=== PATIENT | male | born 1955 | race Caucasian/White ===

== ENCOUNTER → 2016-05-30 | Outpatient (CLI) | payer OTHER ==
[~2016-05-30] MED LIST: AVELOX400 MG PO; BENADRYL25 MG PO; DEPAKOTE DR500 MG PO; Depakote500 MG PO; Flovent 220 M220 MCG INH; K-DUR 2020 MEQ PO; MOTRIN800 MG PO; NAPROSYN500 MG PO; OMEPRAZOLE20 MG PO; OSCAL,OYSTER S500 MG PO; POTASSIUM20 MEQ PO; PREDNICOT20 MG PO; ROBAXIN500 MG PO; SPIRIVA 5 CAPS18 MCG PO; ULTRAM50 MG PO
== END | disposition home or self-care (01) ==
LOC: US 07:11
DX: K76.0 Fatty (change of) liver, not elsewhere classified (principal); R10.13 Epigastric pain

== ENCOUNTER 2017-07-07 12:25 | Inpatient (IN) | payer OTHER ==
[~2017-07-07] VITALS: Ht 182.9 cm; Wt 122.1 kg
--- NOTE | ~2017-07-07 | O ---
[place], [place] OPERATIVE NOTE [id number] UNIT #: [id number] ROOM: [facility] DOCTOR: SARAH TEE MD BIRTHDATE: [birth year] DOS: 07/09/2017 PROCEDURE: Transesophageal echocardiogram and cardioversion. INDICATIONS: Newly documented atrial flutter. PROCEDURE: Informed written consent was obtained from the patient and he was brought to the operating suite in the postabsorptive state. He was anesthetized by anesthesia staff. The transesophageal transducer was then inserted through his mouth to the level of his stomach without difficulty. Images were obtained in the standard fashion. Left ventricular size and function were normal. The interatrial septum was intact both by Doppler and by contrast evaluations. The tricuspid, pulmonic, aortic and mitral valves all appeared structurally normal. The left atrium was normal in size. The pulmonary veins attached normally to the left atrium. The left atrial appendage was small and showed no evidence for clot. The aortic root was investigated and was of normal dimension with minor plaque. Once we were sure that he had no cardiac source of emboli, the transducer was removed and he was placed on his back. He was given a synchronized biphasic shock utilizing AP pads at a dose of 50 watt seconds and converted from atrial flutter into atrial fibrillation. A second shock was administered in a synchronized fashion at 200 watt seconds and he converted to sinus rhythm. The patient tolerated all of these procedures well and had stable vital signs throughout. No immediately apparent complications were present. IMPRESSION: 1. No cardiac source of embolism seen. 2. Successful biphasic synchronized cardioversion. SARAH TEE MD CM:OPRECORD:OPERATIVE NOTE [id number] SARAH TEE MD 07/09/17 1358 interface
--- NOTE | ~2017-07-07 | PR ---
[place], [place] PROGRESS NOTE NAME: CAPO MARQUEZ SR [facility] #: [id number] UNIT #: [id number] ROOM: [facility] DOCTOR: SARAH TEE MD BIRTHDATE: [birth year] DOS: 07/10/2017 SUBJECTIVE: The patient was seen at his bedside in the intensive care unit today for followup of his recently documented atrial flutter. Yesterday, he did undergo a OLEG-guided cardioversion, which he tolerated well. He has remained in sinus rhythm since that time. He was ambulating in the halls today and felt well without lightheadedness or dyspnea. PHYSICAL EXAMINATION: VITAL SIGNS: His pulse is 60 and regular, blood pressure is 124/72. He is afebrile. He weighs 122.1 kg and has a body mass index 36.5. NECK: Supple. He has no jugular distention. Carotids are full. There are no bruits. He had no neck or supraclavicular masses. LUNGS: Respirations are unlabored. His chest is clear to auscultation and percussion. There is no presacral edema or chest wall tenderness. HEART: Has a regular rhythm with an S4 gallop. ABDOMEN: Benign. EXTREMITIES: Showed no edema. IMPRESSION: 1. Newly documented atrial flutter. 2. History of hypertension. 3. History of cigarette abuse. 4. History of deep venous thrombosis. PLAN: I think the patient can go home today. At the time of discharge, his medications are diltiazem CD 240 mg daily, Xarelto 20 mg daily, vitamin D 3000 units daily, tamsulosin 0.4 mg daily, docusate 100 mg daily, omeprazole 20 mg daily, tramadol 100 mg twice a day, Depakote 1000 mg twice a day, mometasone inhaler q.12 hours and milk of magnesia p.r.n. We will plan on seeing him back in the office in about a month. I thank Dr. Recio for asking our advice regarding his care. [place], [place] PROGRESS NOTE NAME: CAPO MARQUEZ SR [facility] #: [id number] UNIT #: [id number] ROOM: [facility] DOCTOR: SARAH TEE MD BIRTHDATE: [birth year] SARAH TEE MD CM:LUI [id number] SARAH TEE MD 07/11/17 0825 interface
--- NOTE | ~2017-07-07 | CON ---
[place], [place] REPORT OF CONSULTATION [id number] UNIT #: [id number] ROOM: [facility] DOCTOR: SARAH TEE MD BIRTHDATE: [birth year] DOS: 07/07/2017 REASON FOR CONSULTATION: Tachycardia, newly documented atrial flutter. HISTORY OF PRESENT ILLNESS: The patient is a 61-year-old man who has no previous history of heart disease. He specifically denies any history of coronary artery disease or previous heart attack. He does have a history of hypertension and is being followed at the [place] where he was recently placed on lisinopril for management of his blood pressure. He notes that for the last two weeks, he has felt poorly. He gets tired easily. He states that he does note that after he exerts himself, his heart races. He also feels lightheaded, but denies syncope. He was seen at the [facility] today where he was noted to be very tachycardic and sent to the emergency room where he was found to be in atrial flutter. He was given diltiazem, metoprolol, and adenosine without much change; however, he does appear to be hemodynamically stable. He was admitted to the intensive care unit for further evaluation and care. PAST MEDICAL HISTORY: Includes 1. Essential hypertension. 2. Seizure disorder. 3. Previous cigarette abuse. 4. History of deep venous thrombosis. The patient was on warfarin in the past. He denies ever having a pulmonary embolism. MEDICATIONS: Prior to admission include Symbicort 2 puffs b.i.d., aspirin 81 mg daily, vitamin D 3000 units daily, Depakote 1000 mg q.12 hours, lisinopril 10 mg daily, omeprazole 20 mg daily, tamsulosin 0.4 mg daily and tramadol 100 mg q.12 hours. ALLERGIES: The patient lists allergies to PHENYTOIN and was told not to take ASPIRIN because of a possible drug interaction. REVIEW OF SYSTEMS: The patient denies diplopia, loss of vision, or focal weakness. He denies lightheadedness or syncope. He denies orthopnea, PND, or pedal edema. He denies fevers, chills, sweats or recent weight change. He does have a cough. He denies hemoptysis or hematemesis. He does have dyspnea with minor exertion as noted above. He denies nausea or vomiting. He does have palpitations as noted above. He denies blood in his stools or urine. He denies any skin rashes. Remainder of the review of systems is negative except as noted above. SOCIAL HISTORY: The patient is disabled because of his seizure disorder. He states, however, that it has been several years since his last seizure. He does smoke on a daily basis. He does not consume alcohol. PHYSICAL EXAMINATION: GENERAL: The patient is an overweight white male who is awake, alert and oriented. [place], [place] REPORT OF CONSULTATION NAME: CAPO MARQUEZ SR UNIT #: [id number] ROOM: [facility] DOCTOR: SARAH TEE MD BIRTHDATE: [birth year] VITAL SIGNS: Pulse is 140 and regular, blood pressure is 116/82. He is afebrile. He weighs 122.5 kg and has a body mass index of 36.7. HEENT: Normocephalic and atraumatic. Extraocular muscles are intact. Sclerae are clear. Pupils equal, round and react to light. The oral mucosa is moist. Tongue is midline. NECK: Supple. He has no jugular distention. Carotids are full. I heard no bruits. He had no neck or supraclavicular masses, no thyromegaly. LUNGS: Respirations are unlabored. He has decreased breath sounds at the bases, but no wheezes or rales. He has no presacral edema or chest wall tenderness. CARDIOVASCULAR: His heart has a regular rhythm. He has no murmurs, rubs or gallops. The PMI is not displaced. He has no precordial heave, lift or thrill. ABDOMEN: Soft and normally active without masses, organomegaly or bruits. EXTREMITIES: Showed no edema. Peripheral pulses are easily palpated bilaterally. LABORATORY DATA: Electrocardiogram does show atrial flutter with 2:1 block. Hemoglobin is 14.9, white count 9500, platelet count 141,000. INR is 1.0. Sodium 141, potassium 4.6, chloride 106, CO2 25, BUN 18, creatinine 1.47. ProBNP is mildly elevated at 702, TSH is normal at 2.57. Troponin is normal. IMPRESSION: 1. Newly documented atrial flutter with rapid ventricular response. 2. History of hypertension, under good control. 3. History of cigarette abuse. 4. History of deep venous thrombosis. PLAN: The patient will be anticoagulated with low-molecular weight heparin for the time being, but we probably will need to place him on a long-acting oral anticoagulant in the near future. For now, we will try to control him with oral diltiazem. If he is difficult to control, we will consider a cardioversion with transesophageal echocardiography to rule out atrial thrombus. We will continue to watch him in the intensive care unit as his medicines were adjusted. An echocardiogram will be obtained. We thank the hospitalist physicians for asking our advice regarding his care. SARAH TEE MD CM:CONSTR:REPORT OF CONSULTATION 1619 07/07/17 1651 interface
--- NOTE | ~2017-07-07 | PR ---
[place], [place] PROGRESS NOTE NAME: CAPO MARQUEZ SR [facility] #: [id number] UNIT #: [id number] ROOM: [facility] DOCTOR: SARAH TEE MD BIRTHDATE: [birth year] DOS: 07/08/2017 SUBJECTIVE: The patient was seen at his bedside in the intensive care unit today, 07/08/2017, for followup of his recently documented atrial flutter. He is a 61-year-old man who states that for the last few weeks he has felt poorly with increased fatigue. He states that he has felt his heart racing, but denies any syncope. He was seen at the [facility] on July 07 where he was noted to be tachycardic and sent to the Emergency Room where he was found to be in atrial flutter. He appears to be hemodynamically stable. He was placed on diltiazem and his rate has slowed, but he remains in flutter this morning. PHYSICAL EXAMINATION: VITAL SIGNS: Today his pulse is about 100 and irregular, blood pressure is 98/66. He is afebrile. NECK: Supple. He has no jugular distention. Carotids are full. LUNGS: Respirations are unlabored. His chest is clear. HEART: Has an irregularly irregular rhythm without gallops or murmurs. The PMI is not displaced. ABDOMEN: Benign. EXTREMITIES: Showed no edema. LABORATORY DATA: I reviewed his echocardiogram yesterday. It showed normal left ventricular size with normal wall thickness and systolic function, left atrial size is normal. There was no significant abnormality of valve function. IMPRESSION: 1. Newly documented atrial flutter. 2. History of hypertension, under good control. 3. History of cigarette abuse. 4. History of deep venous thrombosis. PLAN: For now, we will switch him from Lovenox to rivaroxaban for long-term stroke prophylaxis. I will give him a loading dose of digoxin today. We will continue his oral diltiazem. If he does not convert spontaneously to sinus rhythm today, then we will plan a OLEG-guided cardioversion on 07/09/2017. I explained the procedure to the patient including the risk of sore throat, anesthesia reactions, vomiting, aspiration, etc. and he has agreed to proceed. I thank the hospitalist physicians for asking our advice regarding his care. [place], [place] PROGRESS NOTE NAME: ALMA CAPO ALMANZA UNIT #: [id number] ROOM: [facility] DOCTOR: SARAH TEE MD BIRTHDATE: [birth year] SARAH TEE MD CM:PNCATHIE 1014 [id number] SARAH TEE MD 07/08/17 1551 interface
[2017-07-07 12:31] VITALS: BP 116/80
[2017-07-07 13:09] LABS: BASO # 0.1 10*3/uL (0.0-0.1); BASO % 0.7 % (0.0-1.0); EOS # 0.1 10*3/uL (0.0-0.4); EOS % 1.5 % (1.0-4.0); HEMATOCRIT 44.9 % (42.0-52.0); HEMOGLOBIN 14.9 g/dl (14.0-18.0); LYMPH % 31.2 % (27.0-41.0); MEAN CELL VOLUME 96.6 fl (80.0-94.0); MEAN CORPUSCULAR HGB CONC 33.2 g/dl (33.0-37.0); MEAN PLATELET VOLUME 11.9 fl (9.6-12.3); MONO # 0.9 10*3/uL (0.1-1.0); MONO % 9.2 % (3.0-9.0); NEUT # 5.4 10*3/uL (2.3-7.9); NEUT % 56.6 % (47.0-73.0); PLATELET COUNT AUTOMATED 141 10*3/uL (130-400); RED BLOOD COUNT 4.65 10*6/uL (4.50-5.90); RED CELL DISTRI WIDTH 14.3 % (0-14.5); WHITE BLOOD COUNT 9.5 10*3/uL (4.8-10.8)
[2017-07-07 13:24] LABS: ACT PARTIAL THROMBO TIME 21.5 SECONDS (20.8-31.5)
[2017-07-07 13:26] LABS: ALBUMIN 3.5 gm/dl (3.1-4.5); CREATININE 1.47 mg/dL (0.70-1.30); POTASSIUM 4.6 mmol/L (3.5-5.1); TOTAL PROTEIN 7.4 gm/dL (6.4-8.2); TROPONIN I 0.021 ng/ml (<0.045)
[2017-07-07 13:32] LABS: THYROID STIM HORMONE (HS) 2.57 uIU/ml (0.358-4.75)
[2017-07-07] MEDS ORDERED: LISINOPRIL10 M1 PO (14:06)
[2017-07-07] MEDS ORDERED: ASPIRIN ADULT L81 M2 PO (14:07)
[2017-07-07] MEDS ORDERED: OMEPRAZOLE D/R20 MG PO (14:08)
[2017-07-07] MEDS ORDERED: SYMB160 INH (14:10)
[2017-07-07 14:11] VITALS: BP 116/82
[2017-07-07 14:29] VITALS: BP 124/72
[2017-07-07] MEDS ORDERED: TRAMADOL HYDRO100 MG PO (14:58)
[2017-07-07] MEDS ORDERED: VITAMIN D33000 UNIT PO (15:05)
[2017-07-07] MEDS ORDERED: TAMSULOSIN HCL0.4 MG PO (15:07)
[2017-07-07 16:00] VITALS: BP 112/79
[2017-07-07 20:00] VITALS: BP 104/60
[2017-07-07 21:38] LABS: BILIRUBIN NEGATIVE (NEGATIVE); BLOOD NEGATIVE (NEGATIVE); CLARITY CLEAR (CLEAR); COLOR YELLOW (YELLOW); GLUCOSE 1+ (NEGATIVE); KETONE TRACE (NEGATIVE); LEUKO ESTERASE NEGATIVE (NEGATIVE); NITRITE NEGATIVE (NEGATIVE); PH 5.5 (5.0-9.0); SPECIFIC GRAVITY >= 1.030 (1.005-1.030); UROBILINOGEN 0.2 E.U./dl (0.2-1.0)
[2017-07-07 21:51] LABS: MUCOUS 2+
[2017-07-07 21:52] LABS: BACTERIA TRACE
[2017-07-08] VITALS: BP 100/62
[2017-07-08 04:00] VITALS: BP 95/52
[2017-07-08 05:59] LABS: BASO # 0.1 10*3/uL (0.0-0.1); BASO % 0.9 % (0.0-1.0); EOS # 0.2 10*3/uL (0.0-0.4); EOS % 2.6 % (1.0-4.0); HEMATOCRIT 42.7 % (42.0-52.0); HEMOGLOBIN 13.9 g/dl (14.0-18.0); LYMPH # 3.2 10*3/uL (1.3-4.4); LYMPH % 39.3 % (27.0-41.0); MEAN CELL VOLUME 99.3 fl (80.0-94.0); MEAN CORPUSCULAR HGB 32.3 pg (27.0-31.0); MEAN CORPUSCULAR HGB CONC 32.6 g/dl (33.0-37.0); MEAN PLATELET VOLUME 12.2 fl (9.6-12.3); MONO # 0.8 10*3/uL (0.1-1.0); MONO % 9.6 % (3.0-9.0); NEUT # 3.8 10*3/uL (2.3-7.9); NEUT % 46.4 % (47.0-73.0); PLATELET COUNT AUTOMATED 129 10*3/uL (130-400); RED CELL DISTRI WIDTH 14.6 % (0-14.5); WHITE BLOOD COUNT 8.2 10*3/uL (4.8-10.8)
[2017-07-08 06:10] LABS: CREATININE 1.51 mg/dL (0.70-1.30); POTASSIUM 4.3 mmol/L (3.5-5.1)
[2017-07-08 06:11] LABS: VALPROIC ACID (DEPAKENE) 80.9 ug/ml (50-100)
[2017-07-08 07:55] VITALS: BP 98/66
[2017-07-08 12:00] VITALS: BP 102/75
[2017-07-08 16:00] VITALS: BP 104/64
[2017-07-08 20:00] VITALS: BP 105/58
[2017-07-09] VITALS (10 sets, daily range): BP systolic 99–131; BP diastolic 52–82
[2017-07-09 04:41] LABS: BASO # 0.1 10*3/uL (0.0-0.1); BASO % 0.8 % (0.0-1.0); EOS # 0.2 10*3/uL (0.0-0.4); EOS % 2.8 % (1.0-4.0); HEMATOCRIT 41.9 % (42.0-52.0); HEMOGLOBIN 13.8 g/dl (14.0-18.0); LYMPH # 2.6 10*3/uL (1.3-4.4); LYMPH % 29.9 % (27.0-41.0); MEAN CELL VOLUME 98.6 fl (80.0-94.0); MEAN CORPUSCULAR HGB 32.5 pg (27.0-31.0); MEAN CORPUSCULAR HGB CONC 32.9 g/dl (33.0-37.0); MEAN PLATELET VOLUME 11.7 fl (9.6-12.3); MONO # 0.8 10*3/uL (0.1-1.0); MONO % 9.5 % (3.0-9.0); NEUT # 4.9 10*3/uL (2.3-7.9); NEUT % 56.2 % (47.0-73.0); PLATELET COUNT AUTOMATED 119 10*3/uL (130-400); RED BLOOD COUNT 4.25 10*6/uL (4.50-5.90); RED CELL DISTRI WIDTH 14.6 % (0-14.5); WHITE BLOOD COUNT 8.6 10*3/uL (4.8-10.8)
[2017-07-09 05:09] LABS: ALBUMIN 3.1 gm/dl (3.1-4.5); ALKALINE PHOSPHATASE 74 U/L (45-117); BUN 18 mg/dl (7-24); CHLORIDE 105 mmol/L (98-107); CREATININE 1.21 mg/dL (0.70-1.30); POTASSIUM 4.1 mmol/L (3.5-5.1); SGOT/AST 12 IU/L (3-35); SGPT/ALT 27 U/L (12-78); SODIUM 142 mmol/L (136-145); TOTAL PROTEIN 6.7 gm/dL (6.4-8.2)
[2017-07-10] VITALS: BP 124/73
[2017-07-10 04:00] VITALS: BP 126/70
[2017-07-10 05:28] LABS: BASO # 0.1 10*3/uL (0.0-0.1); BASO % 0.9 % (0.0-1.0); EOS # 0.2 10*3/uL (0.0-0.4); EOS % 1.8 % (1.0-4.0); HEMATOCRIT 42.7 % (42.0-52.0); HEMOGLOBIN 13.6 g/dl (14.0-18.0); LYMPH # 2.5 10*3/uL (1.3-4.4); LYMPH % 26.2 % (27.0-41.0); MEAN CELL VOLUME 99.8 fl (80.0-94.0); MEAN CORPUSCULAR HGB 31.8 pg (27.0-31.0); MEAN CORPUSCULAR HGB CONC 31.9 g/dl (33.0-37.0); MEAN PLATELET VOLUME 11.6 fl (9.6-12.3); MONO # 0.8 10*3/uL (0.1-1.0); MONO % 8.2 % (3.0-9.0); NEUT # 5.8 10*3/uL (2.3-7.9); NEUT % 61.8 % (47.0-73.0); PLATELET COUNT AUTOMATED 125 10*3/uL (130-400); RED BLOOD COUNT 4.28 10*6/uL (4.50-5.90); RED CELL DISTRI WIDTH 14.5 % (0-14.5); WHITE BLOOD COUNT 9.4 10*3/uL (4.8-10.8)
[2017-07-10 05:46] LABS: ALBUMIN 3.4 gm/dl (3.1-4.5); ALKALINE PHOSPHATASE 68 U/L (45-117); BUN 23 mg/dl (7-24); CHLORIDE 102 mmol/L (98-107); CREATININE 1.35 mg/dL (0.70-1.30); POTASSIUM 4.4 mmol/L (3.5-5.1); SGOT/AST 9 IU/L (3-35); SGPT/ALT 25 U/L (12-78); SODIUM 137 mmol/L (136-145); TOTAL PROTEIN 6.8 gm/dL (6.4-8.2)
[2017-07-10 08:00] VITALS: BP 124/72
[2017-07-10] MEDS ORDERED: CARDIZEM CD240 M1 PO (09:37)
== END 2017-07-10 10:28 | disposition home or self-care (01) | DRG 308 ==
LOC: ED 12:25 → ICCU 13:47 → EDHOLD 13:47 → ICCU 13:55
PROVIDERS: Emergency Medicine; Internal Medicine
PROC: B24BZZ4 Ultrasonography of Heart with Aorta, Transesophageal (ICD-10-PCS; principal; 2017-07-09)
PROC: 5A2204Z Restoration of Cardiac Rhythm, Single (ICD-10-PCS; 2017-07-09)
DX: I48.92 Unspecified atrial flutter (principal); N17.0 Acute kidney failure with tubular necrosis; R65.11 Systemic inflammatory response syndrome (SIRS) of non-infectious origin with acute organ dysfunction; E66.01 Morbid (severe) obesity due to excess calories; G40.909 Epilepsy, unspecified, not intractable, without status epilepticus; I10 Essential (primary) hypertension; M79.89 Other specified soft tissue disorders; N40.0 Benign prostatic hyperplasia without lower urinary tract symptoms; K21.9 Gastro-esophageal reflux disease without esophagitis; E55.9 Vitamin D deficiency, unspecified; I25.10 Atherosclerotic heart disease of native coronary artery without angina pectoris; D70.9 Neutropenia, unspecified; R73.9 Hyperglycemia, unspecified; R73.09 Other abnormal glucose; I48.91 Unspecified atrial fibrillation; Z86.718 Personal history of other venous thrombosis and embolism; Z88.6 Allergy status to analgesic agent; Z88.8 Allergy status to other drugs, medicaments and biological substances; Z79.82 Long term (current) use of aspirin; Z79.899 Other long term (current) drug therapy; Z87.891 Personal history of nicotine dependence; Z82.0 Family history of epilepsy and other diseases of the nervous system; Z68.36 Body mass index [BMI] 36.0-36.9, adult

== ENCOUNTER 2017-07-16 16:41 | Inpatient (IN) | payer OTHER ==
[~2017-07-16] VITALS: Ht 182.9 cm; Wt 122.2 kg
[~2017-07-16 16:41] MED LIST changes: +ASPIRIN ADULT L81 M2 PO; +CARDIZEM CD240 M1 PO; +LISINOPRIL10 M1 PO; +OMEPRAZOLE D/R20 MG PO; +SYMB160 INH; +TAMSULOSIN HCL0.4 MG PO; +TRAMADOL HYDRO100 MG PO; +VITAMIN D33000 UNIT PO
[2017-07-16 17:30] VITALS: BP 115/64
[2017-07-16 17:59] VITALS: BP 115/64
[2017-07-16 19:23] LABS: BASO # 0.1 10*3/uL (0.0-0.1); BASO % 0.9 % (0.0-1.0); EOS # 0.2 10*3/uL (0.0-0.4); HEMATOCRIT 43.1 % (42.0-52.0); HEMOGLOBIN 14.3 g/dl (14.0-18.0); LYMPH # 2.8 10*3/uL (1.3-4.4); LYMPH % 35.5 % (27.0-41.0); MEAN CELL VOLUME 97.5 fl (80.0-94.0); MEAN CORPUSCULAR HGB 32.4 pg (27.0-31.0); MEAN CORPUSCULAR HGB CONC 33.2 g/dl (33.0-37.0); MEAN PLATELET VOLUME 11.2 fl (9.6-12.3); MONO # 0.7 10*3/uL (0.1-1.0); MONO % 9.2 % (3.0-9.0); NEUT # 4.1 10*3/uL (2.3-7.9); NEUT % 51.3 % (47.0-73.0); PLATELET COUNT AUTOMATED 143 10*3/uL (130-400); RED BLOOD COUNT 4.42 10*6/uL (4.50-5.90); RED CELL DISTRI WIDTH 14.3 % (0-14.5); WHITE BLOOD COUNT 7.9 10*3/uL (4.8-10.8)
[2017-07-16 20:00] VITALS: BP 118/68
[2017-07-17] VITALS: BP 127/70
[2017-07-17 06:19] LABS: BASO # 0.1 10*3/uL (0.0-0.1); BASO % 0.7 % (0.0-1.0); EOS # 0.2 10*3/uL (0.0-0.4); EOS % 2.9 % (1.0-4.0); HEMATOCRIT 42.3 % (42.0-52.0); HEMOGLOBIN 13.9 g/dl (14.0-18.0); LYMPH # 3.5 10*3/uL (1.3-4.4); LYMPH % 48.9 % (27.0-41.0); MEAN CELL VOLUME 97.5 fl (80.0-94.0); MEAN CORPUSCULAR HGB CONC 32.9 g/dl (33.0-37.0); MEAN PLATELET VOLUME 11.3 fl (9.6-12.3); MONO # 0.5 10*3/uL (0.1-1.0); MONO % 7.1 % (3.0-9.0); NEUT # 2.8 10*3/uL (2.3-7.9); NEUT % 39.6 % (47.0-73.0); PLATELET COUNT AUTOMATED 129 10*3/uL (130-400); RED BLOOD COUNT 4.34 10*6/uL (4.50-5.90); RED CELL DISTRI WIDTH 14.2 % (0-14.5); WHITE BLOOD COUNT 7.2 10*3/uL (4.8-10.8)
[2017-07-17 06:40] LABS: BUN 23 mg/dl (7-24); CHLORIDE 105 mmol/L (98-107); CHOLESTEROL 150 mg/dL (<200); CREATININE 1.23 mg/dL (0.70-1.30); SODIUM 137 mmol/L (136-145); TRIGLYCERIDES 117 mg/dl (<150); VLDL CHOLESTEROL 23 mg/dL (6-40)
[2017-07-17 06:50] LABS: HDL CHOLESTEROL 32 mg/dl (40-60); LDL CHOLESTEROL 95 mg/dL (9-159)
[2017-07-17 08:00] VITALS: BP 116/68
[2017-07-17 08:11] LABS: VITAMIN D, 25-HYDROXY 29.7 ng/mL (30-100)
[2017-07-17 12:00] VITALS: BP 97/70
[2017-07-17 16:00] VITALS: BP 127/77
[2017-07-17 20:00] VITALS: BP 107/73
[2017-07-18 00:10] VITALS: BP 103/56
[2017-07-18 08:00] VITALS: BP 117/66
[2017-07-18 12:00] VITALS: BP 126/76
[2017-07-18] MEDS ORDERED: XARE20MG PO (14:05)
== END 2017-07-18 14:39 | disposition home or self-care (01) | DRG 309 ==
LOC: 4E 16:41
PROVIDERS: Student in an Organized Health Care Education/Training Program
DX: I48.92 Unspecified atrial flutter (principal); F23 Brief psychotic disorder; E66.01 Morbid (severe) obesity due to excess calories; D64.9 Anemia, unspecified; D72.820 Lymphocytosis (symptomatic); I10 Essential (primary) hypertension; K21.9 Gastro-esophageal reflux disease without esophagitis; N40.0 Benign prostatic hyperplasia without lower urinary tract symptoms; G40.909 Epilepsy, unspecified, not intractable, without status epilepticus; J45.909 Unspecified asthma, uncomplicated; G47.33 Obstructive sleep apnea (adult) (pediatric); F41.9 Anxiety disorder, unspecified; F32.9 Major depressive disorder, single episode, unspecified; N32.81 Overactive bladder; Z87.01 Personal history of pneumonia (recurrent); Z79.01 Long term (current) use of anticoagulants; Z79.899 Other long term (current) drug therapy; Z86.718 Personal history of other venous thrombosis and embolism; Z87.891 Personal history of nicotine dependence; Z82.49 Family history of ischemic heart disease and other diseases of the circulatory system; Z82.3 Family history of stroke; Z88.6 Allergy status to analgesic agent; Z88.8 Allergy status to other drugs, medicaments and biological substances; Z68.36 Body mass index [BMI] 36.0-36.9, adult

== ENCOUNTER 2017-08-10 13:40 | Emergency (ER) | payer OTHER ==
[~2017-08-10] VITALS: Ht 182.8 cm; Wt 121.6 kg
[~2017-08-10 13:40] MED LIST changes: +XARE20MG PO
[2017-08-10] MEDS ORDERED: CEPHALEXIN500 M1 PO (14:01)
[2017-08-10] MEDS ORDERED: EPIPEN 2-P0.3 MG/0.3 IJ (14:05)
== END 2017-08-10 14:26 | disposition home or self-care (01) ==
LOC: ED 13:40
DX: T63.441A Toxic effect of venom of bees, accidental (unintentional), initial encounter (principal); M79.89 Other specified soft tissue disorders; K21.9 Gastro-esophageal reflux disease without esophagitis; I10 Essential (primary) hypertension; Z88.8 Allergy status to other drugs, medicaments and biological substances; Z79.899 Other long term (current) drug therapy; Z79.82 Long term (current) use of aspirin; Z87.891 Personal history of nicotine dependence; Y92.89 Other specified places as the place of occurrence of the external cause

== ENCOUNTER 2017-09-04 14:53 | Inpatient (IN) | payer OTHER ==
[~2017-09-04] VITALS: Ht 182.8 cm; Wt 119.0 kg
--- NOTE | ~2017-09-04 | CON ---
[place], [place] REPORT OF CONSULTATION NAME: CAPO MARQUEZ SR [facility] #: [id number] UNIT #: [id number] ROOM: [facility] DOCTOR: SARAH TEE MD BIRTHDATE: [birth year] DOS: 09/04/2017 REASON FOR CONSULTATION: Recurrent atrial flutter. HISTORY OF PRESENT ILLNESS: The patient is a 61-year-old man who has a previous history of hypertension, but no history of coronary artery disease or previous heart attack. He presented to the hospital in 06/2017 with dyspnea, tachycardia and lightheadedness. He denied syncope. He was seen at the [facility] where he was noted to be tachycardic and sent to the Emergency Room where he was found to be in atrial flutter. He was given diltiazem, metoprolol, and adenosine without much change, but appeared to be hemodynamically stable. We did do a OLEG-guided cardioversion on 07/09/2017, and his symptoms improved. Unfortunately, he reverted back to atrial flutter shortly after that and returned to the hospital on 07/17/2017. He was seen by Dr. Young at that point, who treated the patient with rate control and referred him to Electrophysiology. He was seen in [place] by our electrophysiology service and was offered an ablation. The patient did undergo an ablation by Dr. Gonzalez on 08/29/2017; when he left the procedure room, he was in sinus rhythm. However, about 3 days later, he began to feel breathless and fatigued again. He was seen by his primary physician, Dr. Recio, who noted that he was back in atrial flutter and sent him back into the hospital. He complains now of fatigue, dyspnea and weakness, but denies any chest pain. PAST MEDICAL HISTORY: Includes: 1. Essential hypertension. 2. History of seizure disorder. 3. Previous cigarette abuse. 4. History of deep venous thrombosis. The patient was on warfarin in the past, but denied ever having a pulmonary embolism. 5. Atrial flutter documented, 06/2017. The patient did undergo OLEG-guided cardioversion, 07/09/2017. 6. Recurrent atrial flutter prompted atrial flutter ablation by Dr. Gonzalez at [facility] on 08/29/2017. Patient reverted back to atrial flutter around 09/01/2017. MEDICATIONS: Prior to admission, EpiPen as needed for bee stings, testosterone 200 mg injections IM monthly, albuterol 2 puffs q. 4 hours p.r.n., Breo Ellipta 1 inhalation daily, Incruse Ellipta 62.5 mg daily, aspirin 81 mg daily, cholecalciferol 4000 units daily, diltiazem CD 240 mg daily, Depakote 1000 mg q. 12 hours, docusate p.r.n., furosemide 40 mg daily as needed for swelling, lisinopril 10 mg daily, omeprazole 20 mg daily, ondansetron 4 mg b.i.d. p.r.n. nausea, potassium 40 mEq daily, rivaroxaban 20 mg at bedtime with food, tamsulosin 0.4 mg daily and tramadol 50 mg t.i.d. p.r.n. ALLERGIES: He lists allergies to PHENYTOIN AND AZITHROMYCIN. REVIEW OF SYSTEMS: The patient denies diplopia, loss of vision, or focal weakness. He denies lightheadedness or syncope. He has been fatigued and dyspneic. He denies orthopnea. He has had mild peripheral edema. He denies fevers, chills, sweats or recent weight change. He does have an occasional [place], [place] REPORT OF CONSULTATION NAME: CAPO MARQUEZ SR UNIT #: [id number] ROOM: [facility] DOCTOR: SARAH TEE MD BIRTHDATE: [birth year] cough. He denies hemoptysis or hematemesis. He does have dyspnea on minor exertion. He denies nausea or vomiting. He denies blood in his stools or urine. He denies skin rashes. He denies heat or cold intolerance. The remainder of the review of systems is negative except as noted above. SOCIAL HISTORY: The patient is disabled from his seizure disorder. It has been several years, however, since his last seizure. He smokes, but does not consume alcohol. PHYSICAL EXAMINATION: GENERAL: The patient is an overweight white male who is awake, alert and oriented. VITAL SIGNS: Pulse is 89 and irregularly irregular. Blood pressure is 120/78. He is afebrile. NECK: Supple. He has no jugular distention. Carotids are full. I heard no bruits. He had no neck or supraclavicular masses. LUNGS: Respirations are unlabored. CHEST: Clear to auscultation and percussion. He has no presacral edema or chest wall tenderness. CARDIOVASCULAR: His heart has a rapid rate that is somewhat irregular. There are no murmurs or gallops. ABDOMEN: Soft and normally active without masses, organomegaly or bruits. EXTREMITIES: Showed trace edema. Pedal pulses are palpable bilaterally. LABORATORY DATA: I reviewed his electrocardiogram and he is in atrial flutter with a variable AV block. Hemoglobin is 15.1, white count 7600, platelet count 127,000. Sodium 141, potassium 4.4, chloride 107, CO2 25, BUN 21, creatinine 1.49. IMPRESSION: 1. Recurrent symptomatic atrial flutter with rapid ventricular response. 2. History of hypertension. 3. History of seizure disorder. 4. Status post ablation of atrial flutter on 08/29/2017 with early failure of the procedure. PLAN: I briefly discussed the patient's care with Dr. Ben Carrero, fruit culler in [facility]. He believes that we should try to rate control the patient again, possibly with a combination of diltiazem and a beta julio, and then refer him back to them for outpatient repeat ablation. We will attempt this overnight and decide what we do again in the morning. I thank the hospitalist physicians for asking our advice regarding the patient's care. [place], [place] REPORT OF CONSULTATION NAME: CAPO MARQUEZ SR [facility] #: [id number] UNIT #: [id number] ROOM: [facility] DOCTOR: SARAH TEE MD BIRTHDATE: [birth year] SARAH TEE MD CM:CONSTR:REPORT OF CONSULTATION 18 09/05/17 0650 interface
--- NOTE | ~2017-09-04 | PR ---
[place], [place] PROGRESS NOTE NAME: CAPO MARQUEZ SR [facility] #: [id number] UNIT #: [id number] ROOM: [facility] DOCTOR: SARAH TEE MD BIRTHDATE: [birth year] DOS: 09/05/2017 CARDIOLOGY PROGRESS NOTE SUBJECTIVE: The patient was seen today at his bedside in the Intensive Care Unit on 09/05/2017. He is a 61-year-old man who was recently documented to have atrial flutter. He has undergone a cardioversion, but reverted back to atrial flutter shortly thereafter. We were treating him with anticoagulation and rate control. He did have an electrophysiology evaluation and underwent an atrial flutter ablation on 08/29/2017. Within days of the procedure, he was back in atrial flutter and was hospitalized yesterday for management of his symptoms. He was placed on diltiazem and metoprolol and his rate slowed. At first, it appeared as though he had converted, but closer observation of his rhythm strips show that he is still in atrial flutter. I discussed his situation with his horse trekking guide, Dr. Gonzalez who has requested that we cardiovert him again today and start him on dronedarone (Multaq). If he remains in sinus rhythm overnight, he can be discharged to home and evaluated as an outpatient by Dr. Gonzalez next week. Dr. Gonzalez believes that this early failure may simply be due to inflammation in the conduction system from the recent procedure and not a sign that the patient will fail in the long run. PHYSICAL EXAMINATION: VITAL SIGNS: Today, his pulse is 75 and regular, blood pressure is 123/81. He is afebrile. He weighs 119 kg and has a body mass index of 35.6. NECK: Supple. He has no jugular distention. Carotids are full. LUNGS: Respirations are unlabored. His chest is clear. HEART: Has a regular rhythm with an S4 gallop. ABDOMEN: Benign. EXTREMITIES: Showed no edema. LABORATORY DATA: Hemoglobin this morning is 14.7 with white count 7000 and platelet count 115,000. Sodium is 141, potassium 3.9, chloride 106, CO2 of 26, BUN 24, creatinine 1.37. IMPRESSION: 1. Recurrent atrial flutter, status post flutter ablation on 08/29/2017. 2. History of hypertension. PLAN: We will proceed with cardioversion this morning. The patient is n.p.o. After that, we will start him on dronedarone. If he remains in sinus rhythm, he will be discharged within the next 24 hours and will follow up as an outpatient with Dr. Gonzalez. I did explain the procedure to the patient. He does understand that there is a risk of skin cedeno, anesthesia reaction, vomiting, aspiration, and he does understand also that the procedure may not work. Nonetheless, he does agree to proceed. [place], [place] PROGRESS NOTE NAME: CAPO MARQUEZ SR UNIT #: [id number] ROOM: [facility] DOCTOR: SARAH TEE MD BIRTHDATE: [address] Recio for asking our advice regarding his care. SARAH TEE MD CM:PNTRANS 0919 [id number] SARAH TEE MD 09/05/17 1752 interface
--- NOTE | ~2017-09-04 | PR ---
[place], [place] PROGRESS NOTE NAME: CAPO MARQUEZ SR [facility] #: [id number] UNIT #: [id number] ROOM: [facility] DOCTOR: ANA MARÍA ACEVES MD BIRTHDATE: [birth year] DOS: 09/06/2017 SUBJECTIVE: The patient has been admitted to hospital with atrial flutter and has been seen by Dr. Morales and he has cardioversion done yesterday, which is showing good result. He is in normal sinus rhythm right now and is not in any distress. He denies any chest pain, no difficulty in breathing, no nausea, no vomiting. He has a past history of recurring atrial flutter and has been seen by manager of financial doctor and is being followed by him. His FARTUN, MRSA is negative. Echocardiogram done shows normal left ventricular size, mild global hypokinesia, concentric left ventricle hypertrophy, ejection fraction is 50%. Right ventricle is normal. Basic metabolic profile showed glucose 151, BUN 23, creatinine 1.5. GFR is 51. OBJECTIVE: VITAL SIGNS: Blood pressure is 108/66, pulse 54, respirations 24, temperature 97.7. CHEST: Clear. HEART: Regular. ABDOMEN: Soft. ANA MARÍA ACEVES MD CM:PNTRANS [id number] ANA MARÍA ACEVES MD 09/22/17 0738 interface
--- NOTE | ~2017-09-04 | O ---
[place], [place] OPERATIVE NOTE [id number] #: [id number] ROOM: [facility] DOCTOR: SARAH TEE MD BIRTHDATE: [birth year] DOS: 09/05/2017 PROCEDURE: Elective cardioversion. INDICATIONS: Atrial flutter. Procedure was done and this has been dictated 09/05/2017. DESCRIPTION OF PROCEDURE: The patient was brought to the operating suite in a fasting state. Informed written consent was obtained from the patient and he was anesthetized by Anesthesia staff. Once a satisfactory degree of anesthesia was obtained, he was administered a single synchronized 50 watt/sec biphasic cardioversion shock utilizing anterior, posterior pads. He converted immediately to sinus rhythm. He had no immediately recognized complications. IMPRESSION: Successful cardioversion. PLAN: The patient will be placed on antiarrhythmic therapy and observed. He will probably be discharged to home within the next 24 hours and then followed up by his kinesiotherapist within the next week. SARAH TEE MD CM:OPRECORD:OPERATIVE NOTE 1045 1322 SARAH TEE MD 09/05/17 1321 interface
[~2017-09-04 14:53] MED LIST changes: +CEPHALEXIN500 M1 PO; +EPIPEN 2-P0.3 MG/0.3 IJ; -TRAMADOL HYDRO100 MG PO; -VITAMIN D33000 UNIT PO; +VITAMIN D34000 UNIT PO
[2017-09-04 15:10] VITALS: BP 101/64
[2017-09-04 15:35] LABS: BASO # 0.1 10*3/uL (0.0-0.1); BASO % 0.8 % (0.0-1.0); EOS # 0.2 10*3/uL (0.0-0.4); EOS % 2.1 % (1.0-4.0); HEMATOCRIT 44.9 % (42.0-52.0); HEMOGLOBIN 15.1 g/dl (14.0-18.0); LYMPH # 2.6 10*3/uL (1.3-4.4); LYMPH % 33.4 % (27.0-41.0); MEAN CELL VOLUME 95.5 fl (80.0-94.0); MEAN CORPUSCULAR HGB 32.1 pg (27.0-31.0); MEAN CORPUSCULAR HGB CONC 33.6 g/dl (33.0-37.0); MEAN PLATELET VOLUME 12.5 fl (9.6-12.3); MONO # 0.6 10*3/uL (0.1-1.0); MONO % 7.6 % (3.0-9.0); NEUT # 4.2 10*3/uL (2.3-7.9); NEUT % 55.2 % (47.0-73.0); PLATELET COUNT AUTOMATED 127 10*3/uL (130-400); RED CELL DISTRI WIDTH 14.1 % (0-14.5); WHITE BLOOD COUNT 7.6 10*3/uL (4.8-10.8)
[2017-09-04] MEDS ORDERED: GOLYTELY PACKE1 EACH PO (15:44)
[2017-09-04] MEDS ORDERED: Senokot-S 50 MG1 TAB PO (15:45)
[2017-09-04] MEDS ORDERED: PROAIR HFA8.5 GM INH (15:46)
[2017-09-04] MEDS ORDERED: DEPO TESTOS200 MG/ML IM (15:47)
[2017-09-04 15:48] LABS: ACT PARTIAL THROMBO TIME 28.4 SECONDS (20.8-31.5); INTERNATIONAL NORM RATIO 1.2 (2.0-3.5)
[2017-09-04] MEDS ORDERED: INCRUSE ELLI62.5 MCG INH (15:49)
[2017-09-04] MEDS ORDERED: KLOR-CON M2020 ME1 PO (15:50)
[2017-09-04] MEDS ORDERED: LASIX40 MG PO (15:50)
[2017-09-04 15:51] LABS: ALKALINE PHOSPHATASE 87 U/L (45-117); BUN 21 mg/dl (7-24); CHLORIDE 107 mmol/L (98-107); CREATININE 1.49 mg/dL (0.70-1.30); PHOSPHOROUS 3.4 mg/dL (2.5-4.9); POTASSIUM 4.4 mmol/L (3.5-5.1); SGOT/AST 9 IU/L (3-35); SGPT/ALT 34 U/L (12-78); SODIUM 141 mmol/L (136-145); TOTAL PROTEIN 7.6 gm/dL (6.4-8.2)
[2017-09-04] MEDS ORDERED: ZOFRAN4 MG PO (15:52)
[2017-09-04 15:53] LABS: TROPONIN I < 0.015 ng/ml (<0.045)
[2017-09-04] MEDS ORDERED: BREO ELLIPTA 21 EACH INH (15:53)
[2017-09-04 16:00] VITALS: BP 110/64
[2017-09-04 18:00] VITALS: BP 113/82
[2017-09-04 20:00] VITALS: BP 120/78
[2017-09-04 22:00] VITALS: BP 118/72
[2017-09-05] VITALS (11 sets, daily range): BP systolic 97–150; BP diastolic 52–97
[2017-09-05 05:58] LABS: BASO # 0.1 10*3/uL (0.0-0.1); EOS # 0.2 10*3/uL (0.0-0.4); EOS % 3.5 % (1.0-4.0); HEMATOCRIT 44.3 % (42.0-52.0); HEMOGLOBIN 14.7 g/dl (14.0-18.0); LYMPH # 2.8 10*3/uL (1.3-4.4); LYMPH % 39.6 % (27.0-41.0); MEAN CELL VOLUME 95.9 fl (80.0-94.0); MEAN CORPUSCULAR HGB 31.8 pg (27.0-31.0); MEAN CORPUSCULAR HGB CONC 33.2 g/dl (33.0-37.0); MEAN PLATELET VOLUME 11.9 fl (9.6-12.3); MONO # 0.5 10*3/uL (0.1-1.0); MONO % 7.3 % (3.0-9.0); NEUT # 3.3 10*3/uL (2.3-7.9); NEUT % 47.9 % (47.0-73.0); PLATELET COUNT AUTOMATED 115 10*3/uL (130-400); RED BLOOD COUNT 4.62 10*6/uL (4.50-5.90); RED CELL DISTRI WIDTH 14.1 % (0-14.5)
[2017-09-05 06:13] LABS: ALBUMIN 3.3 gm/dl (3.1-4.5); BUN 24 mg/dl (7-24); CHLORIDE 106 mmol/L (98-107); CREATININE 1.37 mg/dL (0.70-1.30); PHOSPHOROUS 4.1 mg/dL (2.5-4.9); POTASSIUM 3.9 mmol/L (3.5-5.1); SGOT/AST 11 IU/L (3-35); SGPT/ALT 28 U/L (12-78); SODIUM 141 mmol/L (136-145); TOTAL PROTEIN 6.8 gm/dL (6.4-8.2)
[2017-09-05 06:14] LABS: ACT PARTIAL THROMBO TIME 29.6 SECONDS (20.8-31.5); ALKALINE PHOSPHATASE 85 U/L (45-117); INTERNATIONAL NORM RATIO 1.2 (2.0-3.5); TRIGLYCERIDES 172 mg/dl (<150); VLDL CHOLESTEROL 34 mg/dL (6-40)
[2017-09-05 06:20] LABS: CHOLESTEROL 162 mg/dL (<200); HDL CHOLESTEROL 31 mg/dl (40-60); LDL CHOLESTEROL 97 mg/dL (9-159)
[2017-09-05 07:48] LABS: VITAMIN D, 25-HYDROXY 28.4 ng/mL (30-100)
[2017-09-06] VITALS: BP 110/60
[2017-09-06 04:00] VITALS: BP 104/60
[2017-09-06 06:08] LABS: BUN 23 mg/dl (7-24); CHLORIDE 107 mmol/L (98-107); CREATININE 1.42 mg/dL (0.70-1.30); POTASSIUM 4.1 mmol/L (3.5-5.1); SODIUM 140 mmol/L (136-145)
[2017-09-06 08:00] VITALS: BP 108/56
[2017-09-06 12:00] VITALS: BP 95/56
[2017-09-06] MEDS ORDERED: TOPROL XL25 MG PO (15:44)
[2017-09-06] MEDS ORDERED: MULTAQ400 MG PO (15:44)
[2017-09-09] MEDS ORDERED: MULTAQ400 MG PO (11:07)
== END 2017-09-06 16:00 | disposition home or self-care (01) | DRG 310 ==
LOC: ICCU 14:53
PROVIDERS: Family Medicine
PROC: 5A2204Z Restoration of Cardiac Rhythm, Single (ICD-10-PCS; principal; 2017-09-05)
DX: I48.92 Unspecified atrial flutter (principal); D69.6 Thrombocytopenia, unspecified; E66.01 Morbid (severe) obesity due to excess calories; G40.909 Epilepsy, unspecified, not intractable, without status epilepticus; R42 Dizziness and giddiness; I10 Essential (primary) hypertension; K21.9 Gastro-esophageal reflux disease without esophagitis; N40.0 Benign prostatic hyperplasia without lower urinary tract symptoms; E55.9 Vitamin D deficiency, unspecified; J45.909 Unspecified asthma, uncomplicated; G47.33 Obstructive sleep apnea (adult) (pediatric); R73.9 Hyperglycemia, unspecified; Z87.891 Personal history of nicotine dependence; Z82.49 Family history of ischemic heart disease and other diseases of the circulatory system; Z82.3 Family history of stroke; Z81.8 Family history of other mental and behavioral disorders; Z88.8 Allergy status to other drugs, medicaments and biological substances; Z79.899 Other long term (current) drug therapy; Z79.82 Long term (current) use of aspirin; Z79.01 Long term (current) use of anticoagulants; Z86.718 Personal history of other venous thrombosis and embolism; Z68.35 Body mass index [BMI] 35.0-35.9, adult

== ENCOUNTER → 2018-05-21 | Outpatient (CLI) | payer OTHER ==
[~2018-05-21] MED LIST changes: +BREO ELLIPTA 21 EACH INH; +DEPO TESTOS200 MG/ML IM; +FLECAINIDE ACE100 M1 PO; +GOLYTELY PACKE1 EACH PO; +INCRUSE ELLI62.5 MCG INH; +KLOR-CON M2020 ME1 PO; +LASIX40 MG PO; +METOPROLOL SUCC25 M2 PO; +MULTAQ400 MG PO; +PROAIR HFA8.5 GM INH; +Senokot-S 50 MG1 TAB PO; +TOPROL XL25 MG PO; +ZOFRAN4 MG PO
== END | disposition home or self-care (01) ==
LOC: RAD 15:07
DX: J43.9 Emphysema, unspecified (principal); R06.02 Shortness of breath; R09.89 Other specified symptoms and signs involving the circulatory and respiratory systems; R53.83 Other fatigue; R50.9 Fever, unspecified; R11.0 Nausea; Z87.891 Personal history of nicotine dependence